=== PATIENT | female | born 1975 | race American Indian/Alaskan Native ===

== ENCOUNTER 2016-11-02 13:41 | Emergency (ER) | payer MEDICAID ==
[2016-11-02 14:03] VITALS: TEMP 98.7
--- NOTE | 2016-11-02 14:10 | ED PDOC ---
Arrival/HPI - General Chief Complaint: Psychiatric Evaluation Time Seen by Provider: 11/02/16 13:58 Historian: Patient - History of Present Illness Narrative History of Present Illness (Text): 11/02/16 14:10 A 40 year old female whose past medical history is not known, presents to the emergency department for depression and anxiety. The patient states that she has been wanting to end the depression for months. She was sent in by the [facility].The patient denies headache, dizziness, vomiting, nausea, diarrhea, homicidal ideation, hallucination abdominal pain, chest pain, shortness of breath, fever, chills, or any other complaint. Symptom Onset: Sudden Symptom Course: Unchanged Activities at Onset: Rest, Light Context: Home Past Medical History - Provider Review Nursing Documentation Reviewed: Yes - Infectious Disease Hx of Infectious Diseases: None - Reproductive Menopause: No - Psychiatric Hx Anxiety: Yes Hx Substance Use: No - Anesthesia Hx Anesthesia: No Family/Social History - Physician Review Nursing Documentation Reviewed: Yes Family/Social History: No Known Family HX Smoking Status: Unknown If Ever Smoked Hx Alcohol Use: Yes Frequency of alcohol use: Daily Hx Substance Use: No Allergies/Home Meds Allergies/Adverse Reactions: Allergies No Known Allergies Allergy (Verified 11/02/16 14:03) Home Medications: Home Meds Medication Instructions Recorded Confirmed Alprazolam [Xanax] 0.5 mg PO QID 11/02/16 11/02/16 Review of Systems - Physician Review All systems were reviewed & negative as marked: Yes - Review of Systems Constitutional: absent: Fevers Respiratory: absent: SOB Cardiovascular: absent: Chest Pain Gastrointestinal: absent: Abdominal Pain, Diarrhea, Nausea, Vomiting Neurological: absent: Headache, Dizziness Psychiatric: Anxiety, Depression. absent: Other (Homicidal Ideation) Physical Exam Vital Signs Reviewed: Yes Vital Signs Temp Pulse Resp BP Pulse Ox 11/02/16 15:41 81 18 128/83 100 11/02/16 13:58 98.7 F 83 16 129/85 99 Temperature: Afebrile Blood Pressure: Normal Pulse: Regular Respiratory Rate: Normal Appearance: Positive for: Well-Appearing, Non-Toxic, Comfortable Pain Distress: None Mental Status: Positive for: Alert and Oriented X 3 - Systems Exam Head: Present: Atraumatic, Normocephalic Pupils: Present: PERRL Extroacular Muscles: Present: EOMI Conjunctiva: Present: Normal Mouth: Present: Moist Mucous Membranes Neck: Present: Normal Range of Motion Respiratory/Chest: Present: Clear to Auscultation, Good Air Exchange. No: Respiratory Distress, Accessory Muscle Use Cardiovascular: Present: Regular Rate and Rhythm, Normal S1, S2. No: Murmurs Abdomen: Present: Normal Bowel Sounds. No: Tenderness, Distention, Peritoneal Signs Back: Present: Normal Inspection Upper Extremity: Present: Normal Inspection. No: Cyanosis, Edema Lower Extremity: Present: Normal Inspection. No: Edema Neurological: Present: GCS=15, CN II-XII Intact, Speech Normal Skin: Present: Warm, Dry, Normal Color. No: Rashes Psychiatric: Present: Alert, Oriented x 3, Normal Insight, Normal Concentration , Anxious, Depressed Mood Medical Decision Making ED Course and Treatment: 11/02/16 14:18 Impression: A 40 year old female sent in by [facility] for depression and anxiety. Differential Diagnosis included but are not limited to: Plan: -- EKG -- Chest X-ray -- Urinalysis -- Labs -- Reassess and disposition Progress Notes: 11/02/16 15:30 EKG: Ordered, reviewed, and independently interpreted the EKG. Rate : 90 BPM Rhythm : NSR 11/02/16 15:44: Patient was seen by [facility], will sign out AMA. Leaving Against Medical Advice (AMA): The patient is choosing to leave against medical advice. I have personally explained to the patient that choosing to do so may result in permanent bodily harm or . I have discussed at great length that without further evaluation and monitoring there may be unforeseen circumstances and/or deterioration causing permanent bodily harm or as a result of their choice. The patient is alert, oriented, and shows the mental capacity to make clear decisions regarding the patients health care at this time. The patient continues to wish to leave against medical advice. In light of the patients decision to leave against medical advice, follow-up has been arranged and the patient is aware of the importance to following up as instructed. The patient has been advised that they should return to the emergency room immediately if they change their mind at any time, or if their condition begins to change or worsen in any way. - Lab Interpretations Lab Results: 11/02/16 14:50 11/02/16 14:50 Lab Results 11/02/16 14:50: Alcohol, Quantitative < 10 11/02/16 14:50: Salicylates < 1 L, Acetaminophen < 10.0 L 11/02/16 14:50: Urine Opiates Screen Negative, Urine Methadone Screen Negative, Ur Barbiturates Screen Negative, Ur Phencyclidine Scrn Negative, Ur Amphetamines Screen Negative, U Benzodiazepines Scrn Positive H, U Oth Cocaine Metabols Negative, U Cannabinoids Screen Negative 11/02/16 14:50: Sodium 138, Potassium 3.6, Chloride 103, Carbon Dioxide 24, Anion Gap 15, BUN 7, Creatinine 0.7, Est GFR ( Amer) > 60, Est GFR (Non- Af Amer) > 60, Random Glucose 102, Calcium 9.3, Total Bilirubin 0.7, AST 34, ALT 24, Alkaline Phosphatase 52, Total Protein 7.4, Albumin 4.4, Globulin 3.0, Albumin/Globulin Ratio 1.5 11/02/16 14:50: Urine Color Yellow, Urine Appearance Clear, Urine pH 6.0, Ur Specific [place] >= 1.030, Urine Protein Trace H, Urine Glucose (UA) Negative, Urine Ketones Negative, Urine Blood Negative, Urine Nitrate Negative, Urine Bilirubin Negative, Urine Urobilinogen 0.2, Ur Leukocyte Esterase Negative, Urine RBC 0 - 2, Urine WBC 0 - 2, Ur Epithelial Cells 3 - 4, Urine Bacteria Few , Urine HCG, Qual Negative 11/02/16 14:50: WBC 5.6, RBC 4.43, Hgb 12.4, Hct 35.7 L, MCV 80.6, MCH 28.0, MCHC 34.7, RDW 13.4, Plt Count 330, MPV 8.6, Gran % 44.0 L, Lymph % (Auto) 47.2 H, [place] % (Auto) 7.4 H, Eos % (Auto) 0.9 L, Baso % (Auto) 0.5, Gran # 2.44, Lymph # 2.6, [place] # 0.4, Eos # 0.1, Baso # 0.03 I have reviewed the lab results: Yes - EKG Interpretation Interpreted by ED Physician: Yes Type: 12 lead EKG - Scribe Statement The provider has reviewed the documentation as recorded by the Scribe Leila Mcleod Provider Scribe Attestation: All medical record entries made by the Scribe were at my direction and personally dictated by me. I have reviewed the chart and agree that the record accurately reflects my personal performance of the history, physical exam, medical decision making, and the department course for this patient. I have also personally directed, reviewed, and agree with the discharge instructions and disposition. Disposition/Present on Arrival - Present on Arrival Any Indicators Present on Arrival: No History of DVT/PE: No History of Uncontrolled Diabetes: No Urinary Catheter: No History of Decub. Ulcer: No History Surgical Site Infection Following: None - Disposition Have Diagnosis and Disposition been Completed?: Yes Diagnosis: Depression Disposition: AGAINST MEDICAL ADVICE Disposition Time: 03:00 Condition: STABLE Discharge Instructions (ExitCare): Depression (ED), Suicide Prevention for Adults (ED) Additional Instructions: please follow up with your doctor. return to er with worsening symptoms or concerns. Referrals: [facility] [Outside] - Follow up with primary Forms: [employer] (Estonian)
[2016-11-02 15:10] LABS: BASO # 0.03 K/mm3 (0.0-2.0); BASO % 0.5 % (0.0-3.0); EOS # 0.1 (0.0-0.7); EOS % 0.9 % (1.5-5.0); GRAN # 2.44 (1.4-6.5); HEMOGLOBIN 12.4 g/dL (12.0-16.0); LYMPH # 2.6 (1.2-3.4); LYMPH % 47.2 % (22.0-35.0); MEAN CELL VOLUME 80.6 fl (80.0-105.0); MEAN CORPUSCULAR HGB CONC 34.7 g/dl (31.0-37.0); MEAN PLATELET VOLUME 8.6 fl (7.0-11.0); MONO # 0.4 (0.1-0.6); MONO % 7.4 % (1.0-6.0); PLATELET COUNT 330 10^3/uL (120.0-450.0); RBC 4.43 10^6/uL (3.5-6.1); RED CELL DISTRIBUTION WIDTH 13.4 % (11.5-14.5); WHITE BLOOD COUNT 5.6 10^3/ul (4.5-11.0)
[2016-11-02 15:13] LABS: URINE BILIRUBIN NEGATIVE (NEGATIVE); URINE BLOOD NEGATIVE (NEGATIVE); URINE GLUCOSE (UA) NEGATIVE (NEGATIVE); URINE LEUKOCYTE ESTERASE NEGATIVE Leu/uL (NEGATIVE); URINE NITRATE NEGATIVE (NEGATIVE); URINE PROTEIN TRACE mg/dL (<30 mg/dL); URINE UROBILINOGEN 0.2 E.U./dL (<1 E.U./dL)
[2016-11-02 15:15] LABS: SALICYLATE < 1 mg/dL (2.0-20.0)
[2016-11-02 15:16] LABS: ALB/GLOB RATIO 1.5 (1.1-1.8); ALBUMIN 4.4 g/dL (3.0-4.8); ALT/SGPT 24 U/L (7-56); AST/SGOT 34 U/L (15-39); BLOOD UREA NITROGEN 7 mg/dL (7-21); CALCIUM 9.3 mg/dL (8.4-10.5); GFR AFRICAN-AMERICAN > 60; GFR NON-AFRICAN AMERICAN > 60
[2016-11-02 15:20] LABS: ACETAMINOPHEN < 10.0 ug/ml (10.0-20.0)
[2016-11-02 15:26] LABS: BARBITURATES, UR NEGATIVE (NEGATIVE); BENZODIAZEPINES, UR POSITIVE (NEGATIVE); OPIATES, UR NEGATIVE (NEGATIVE); PHENCYCLIDINE, UR NEGATIVE (NEGATIVE)
[2016-11-02 15:30] LABS: HCG,QUALITATIVE URINE NEGATIVE (NEGATIVE)
[2016-11-02 15:38] LABS: URINE COLOR YELLOW (YELLOW)
[2016-11-02 15:39] LABS: URINE APPEARANCE CLEAR (CLEAR)
[2016-11-02 15:42] VITALS: BP 128/83; PULSE 81; RESP 18; O2SAT 100
[2016-11-02 15:45] LABS: URINE BACTERIA FEW (NEG); URINE RBC 0 - 2 /hpf (0-2); URINE WBC 0 - 2 /hpf (0-6)
--- NOTE | 2016-11-03 00:12 | CARD ---
APPROVED REPORT EKG Measurement Heart [id number] <Conclusion> Normal sinus rhythm Possible Left atrial enlargement Prolonged QT Abnormal ECG
== END 2016-11-02 15:45 | disposition left against medical advice (07) ==
LOC: ED 13:41 → MERGE 13:41 → ED 15:45
DX: F32.9 Major depressive disorder, single episode, unspecified (principal)

== ENCOUNTER 2017-11-22 10:13 | Emergency (ER) | payer MEDICAID, OTHER ==
[2017-11-22 10:21] VITALS: BMI 32.3
--- NOTE | 2017-11-22 11:08 | ED PDOC ---
Arrival/HPI - General Historian: Patient - General Chief Complaint: GI Problem Time Seen by Provider: 11/22/17 10:24 - History of Present Illness Narrative History of Present Illness (Text): 11/22/17 10:55 Patient is a 41 year old female with PMH of anxiety and depression presenting to the ED today with right abdominal pain and constipation. Patient states that she has pain on the right side of the abdomen that she describes as pressure- like, radiating to the right flank, and 7/10 in severity. She also states that she started having constipation 6 months ago and is not getting any better despite increasing her fiber intake and taking stool softeners. Patient states that her stools are hard and she has to manually remove stool from her anal canal during a bowel movement. She also admits to occasionally seeing bright red blood with her bowel movements and on the toilet paper. Patient denies fevers, chills, headaches, chest pain, shortness of breath, N/V/D, or urinary symptoms. (Speedy Meza) Past Medical History - Infectious Disease Hx of Infectious Diseases: None - Cardiac Hx Cardiac Disorders: Yes Hx Hypertension: Yes (NO MEDICATION) - Pulmonary Hx Respiratory Disorders: No Hx Tuberculosis: No - Neurological Hx Seizures: No - HEENT Hx HEENT Disorder: No - Renal Hx Renal Disorder: No - Endocrine/Metabolic Hx Endocrine Disorders: No - Hematological/Oncological Hx Blood Disorders: No Hx Cancer: No - Integumentary Hx Dermatological Disorder: No - Musculoskeletal/Rheumatological Hx Musculoskeletal Disorders: No - Gastrointestinal Hx Gastrointestinal Disorders: Yes Hx Constipation: Yes - Genitourinary/Gynecological Hx Sexually Transmitted Diseases: No - Psychiatric Hx Psychophysiologic Disorder: Yes Hx Anxiety: Yes Hx Depression: Yes Hx Substance Use: No - Surgical History Hx Section: Yes - Anesthesia Hx Anesthesia: Yes Family/Social History Family/Social History: Other (Uncle has Crohn's disease) Smoking Status: Former Smoker Hx Alcohol Use: Yes Hx Substance Use: No Allergies/Home Meds Allergies/Adverse Reactions: Allergies No Known Allergies Allergy (Verified 11/22/17 10:18) Home Medications: Home Meds Medication Instructions Recorded Confirmed Alprazolam [Xanax] 0.5 mg PO QID 11/02/16 11/22/17 Docusate Sodium [Pinzon' Stool 100 mg PO TID 11/22/17 11/22/17 Softener Laxative] Ranitidine HCl [Sunmark Acid 150 mg PO DAILY 11/22/17 11/22/17 Business Banking Sales Assistant] Review of Systems - Review of Systems Constitutional: Normal. absent: Weight Change, Fevers, Night Sweats Eyes: Normal ENT: Normal Respiratory: Normal. absent: SOB, Cough Cardiovascular: Normal. absent: Chest Pain, Palpitations Gastrointestinal: Abdominal Pain (Right sided abdominal pain), Stool Changes ( Hard and rock-like stools), Constipation, Hematochezia (Admits to seeing bright red blood with bowel movements occasionally). absent: Diarrhea, Nausea, Vomiting, Appetite Changes Genitourinary Female: Normal. absent: Dysuria, Frequency, Hematuria Musculoskeletal: Normal, Back Pain Skin: Normal. absent: Rash Neurological: Normal. absent: Headache Psychiatric: Normal, Anxiety Physical Exam Vital Signs Reviewed: Yes Temperature: Afebrile Blood Pressure: Hypertensive Pulse: Regular Respiratory Rate: Normal Appearance: Positive for: Well-Appearing Pain Distress: Mild Mental Status: Positive for: Alert and Oriented X 3 - Systems Exam Head: Present: Atraumatic, Normocephalic Pupils: Present: PERRL Extroacular Muscles: Present: EOMI Conjunctiva: Present: Normal Mouth: Present: Moist Mucous Membranes Respiratory/Chest: Present: Clear to Auscultation. No: Respiratory Distress, Accessory Muscle Use, Wheezes Cardiovascular: Present: Regular Rate and Rhythm, Normal S1, S2. No: Murmurs, Rub, Gallop Abdomen: Present: Tenderness (right lower quadrant tender to palpation, negative Herron's sign, not tender at Mcburney's point). No: Normal Bowel Sounds (Hypoactive bowel sounds), Guarding Rectal: No: Occult Blood (FOBT done by Dr. Damon), Rectal Tenderness, Hemorrhoids Back: Present: Normal Inspection. No: CVA Tenderness Upper Extremity: Present: Normal Inspection. No: Cyanosis, Edema Lower Extremity: Present: Normal Inspection. No: Edema Neurological: Present: GCS=15, CN II-XII Intact, Speech Normal Skin: Present: Warm, Dry, Normal Color. No: Rashes Psychiatric: Present: Alert, Oriented x 3, Normal Insight, Normal Concentration Vital Signs Temp Pulse Resp BP Pulse Ox 11/22/17 10:18 97.8 F 87 17 152/94 H 100 Medical Decision Making ED Course and Treatment: 11/22/17 11:16 Impression: Patient is a 41 year old female with past medical history of depression and anxiety presenting to the ED with right-sided abdominal pain and constipation. Differential Diagnoses Include But is Not Limited To: - Constipation Plan: - Magnesium citrate - Fecal occult blood test Progress note: 11/22/17 11:17 - Patient examined with attending. Fecal occult blood test was negative for blood. 11/22/17 12:00 - Patient refused to take magnesium citrate. Patient states that she has an appointment with billing coordinator in December and will follow up with him. Patient is stable for discharge. (Speedy Meza) 11/22/17 12:40 41 yo female presents with right sided abdominal pain and constipation. She's had this pain for a while and it's not new. What brought her today was that her stool had some blood and discharge on it. Abdomen is soft and not tender. No distention. Normal bowel sounds Rectal exam: Gm/Svp [employer] Hanan Scribe. No blood. No fissure/hemorrhoids/abscess. No tenderness. Normal tone. Patient appears in no distress. She has no pain at rest. I was going to give her Mag Citrate but patient does not want the treatment. She wants to f/u with her GI doctor instead and is requesting a work note. (Kenny Damon) - Medication Orders Current Medication Orders: Discontinued Medications Magnesium Citrate (Citrate Of Mag) 300 ml PO ONCE ONE Stop: 11/22/17 11:15 Last Admin: 11/22/17 11:31 Dose: 300 ml Disposition/Present on Arrival - Present on Arrival Any Indicators Present on Arrival: No History of DVT/PE: No History of Uncontrolled Diabetes: No Urinary Catheter: No History of Decub. Ulcer: No History Surgical Site Infection Following: None - Disposition Have Diagnosis and Disposition been Completed?: Yes Disposition Time: 11:58 Patient Plan: Discharge - Disposition Diagnosis: Constipation, Abdominal pain Disposition: HOME/ ROUTINE Patient Problems: Current Active Problems Problem Status Onset Abdominal pain Acute Constipation Acute Condition: GOOD Discharge Instructions (ExitCare): Constipation, Adult (DC) Additional Instructions: KENNA URBINA, thank you for letting us take care of you today. Your provider was Kenny Damon DO and you were treated for abdominal pain, constipation. The emergency medical care you received today was directed at your acute symptoms. If you were prescribed any medication, please fill it and take as directed. It may take several days for your symptoms to resolve. Return to the Emergency Department if your symptoms worsen, do not improve, or if you have any other problems. Please contact your doctor or call one of the physicians/clinics you have been referred to that are listed on the Patient Visit Information form that is included in your discharge packet. Bring any paperwork you were given at discharge with you along with any medications you are taking to your follow up visit. Our treatment cannot replace ongoing medical care by a primary care provider outside of the emergency department. Thank you for allowing the [facility] team to be part of your care today. If you had an X-Ray or CT scan: A Radiologist will review the ED reading if any change in treatment is needed we will contact you. If you had a blood, urine, or wound culture: It will take several days for the results, if any change in treatment is needed we will contact you. If you had an STI test: It will take 48 hours for the results. Please call after 1 week if you have not heard back. Referrals: Humphrey Mckay MD [Primary Care Provider] - Follow up with primary Tony Gray MD [Staff Provider] - Follow up with primary Forms: [employer] (Khmer), WORK NOTE
[2017-11-22] MEDS: Magnesium Citrate Oral SOL (300 ml) PO ONE (11:31)
[2017-11-22 13:29] VITALS: BP 158/91; PULSE 70; RESP 16; TEMP 98.9; O2SAT 99
== END 2017-11-22 13:10 | disposition home or self-care (01) ==
LOC: ED 10:13
DX: R10.9 Unspecified abdominal pain (principal); K59.00 Constipation, unspecified; I10 Essential (primary) hypertension; Z87.891 Personal history of nicotine dependence